=== PATIENT | female | born 2000 | race Two or more races ===

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

== ENCOUNTER 2023-10-06 18:09 | Emergency (ER) | payer MEDICAID ==
[~2023-10-06] VITALS: Ht 160 cm; Wt 70.0 kg
[2023-10-06 18:13] VITALS: BP 105/69; PULSE 90; RESP 18; TEMP 98.5; O2SAT 98
[2023-10-06] MEDS ORDERED: BENZ9GEL2 TP (22:36)
== END 2023-10-06 23:00 | disposition home or self-care (01) ==
LOC: ER 18:09
DX: K14.6 Glossodynia (principal); K12.0 Recurrent oral aphthae
CPT/HCPCS: 70490; 82962; 99284

== ENCOUNTER 2024-10-13 18:43 | Emergency (ER) | payer MEDICAID ==
[~2024-10-13] VITALS: Ht 157.5 cm; Wt 55.0 kg
[~2024-10-13 18:43] MED LIST: BENZ9GEL2 TP
[2024-10-13 18:47] VITALS: BP 134/80; PULSE 114; RESP 18; TEMP 36.9; O2SAT 98
== END 2024-10-13 19:19 | disposition left against medical advice (07) ==
LOC: ER 18:43
DX: R46.4 Slowness and poor responsiveness (principal)
CPT/HCPCS: 99283